=== PATIENT | female | born 1930 | race Caucasian/White ===

== ENCOUNTER 2016-04-23 20:23 | Emergency (ER) | payer OTHER ==
--- NOTE | 2016-04-23 20:23 | EDPHY ---
H & P Time Seen by Provider: 04/23/16 20:23 HPI/ROS: CHIEF COMPLAINT: Dizziness HISTORY OF PRESENT ILLNESS: Patient complained of dizziness today but has difficulty telling me the exact details. She mainly tells me that she wanted to go way. She describes it is a sensation of movement and being off balance which only lasts seconds and sounds like it is triggered by movement or standing. No nausea. No headache. No neck pain and no syncope. Asymptomatic in the emergency department. REVIEW OF SYSTEMS: Eye: no change in vision ENT: no sore throat Cardiac: no chest pain or syncope Pulmonary: no cough or SOB Abdomen: no vomiting, diarrhea, abdominal pain Musculoskeletal: No back or neck pain. She has had some intermittent left arm pain which also lasts seconds over the past month. None in the emergency department. Skin: no rash Neuro: no headache Constitutional: no fever : no urinary symptoms A comprehensive 10 point review of systems is otherwise negative aside from elements mentioned in the history of present illness. PAST MEDICAL HISTORY: Includes hypertension and esophageal tremor, esophageal stricture, macular degeneration, bilateral hip replacements. Social history: Ex smoker General Appearance: Alert and conversant, cooperative. Eyes: No scleral icterus. ENT, Mouth: Normal mucous membranes. Normal tympanic membranes. Respiratory: Normal respiratory effort, breath sounds equal, lungs are clear to auscultation. Cardiovascular: Regular rate and rhythm. Gastrointestinal: Abdomen is soft and non tender. Neurological: Alert and follows commands, oriented x2 which per EMS is her baseline. Normal [id number] bilaterally and normal epin-sd-ervy bilaterally. Extraocular motions intact. Normally conversant. Face symmetric, normal movement and sensation in all extremities. Skin: Warm and dry, no rashes. Musculoskeletal: No peripheral edema and no joint swelling. Normal range of motion of the left arm. No bony tenderness and no joint effusions. Compartments are soft. No skin changes. Psychiatric: Not agitated. Emergency Department course/MDM: EKG, head CT, labs to include troponin. Symptoms most likely benign positional vertigo. Only last for seconds, worse with position, normal neurologic exam here. Unclear about the significance of the left arm symptoms, but does not appear to be unstable angina. [id number]: Discussed with Sina, plan for DC with outpatient followup. Up with walker in ED hallway now. Requests no meclizine or benzodiazepines for the patient. Constitutional: Initial Vital Signs Temperature (C) 36.5 C 04/23/16 20:23 Heart Rate 66 04/23/16 20:23 Respiratory Rate 16 04/23/16 20:23 Blood Pressure 195/83 H 04/23/16 20:23 O2 Sat (%) 94 04/23/16 20:23 O2 Delivery Mode Room Air Allergies/Adverse Reactions: No Known Allergies Allergy (Verified 07/27/15 12:12) Home Medications: Medication Instructions Recorded ALPRAZolam [Xanax 0.5 MG (RX)] 0.5 mg PO HS PRN 08/21/12 Lexapro 10 MG (RX) 10 mg PO DAILY 02/26/13 Propranolol HCl [Inderal 20mg (*)] 60 mg PO BID 02/26/13 ZyrTEC 10 mg (RX) 10 mg PO DAILY PRN 02/26/13 Lisinopril 04/23/16 Medical Decision Making - Diagnostics EKG Interpretation: 12-lead EKG interpreted by me; official reading is in trace master. My interpretation is sinus rhythm with left axis but no acute ischemic changes. Imaging: CT head negative, reviewed with Dr. walton at 9:41 p.m. Differential Diagnosis: Differential diagnosis considered for dizziness including but not limited to peripheral and central causes of vertigo, orthostatic causes including dehydration, and blood loss. - Data Points Laboratory Results: Laboratory Results 04/23/16 20:36 04/23/16 20:36 04/23/16 20:36 WBC 8.33 10^3/uL (3.80-9.50) RBC 5.03 10^6/uL (4.18-5.33) Hgb 15.6 g/dL (12.6-16.3) Hct 47.1 H % (38.0-47.0) MCV 93.6 fL (81.5-99.8) MCH 31.0 pg (27.9-34.1) MCHC 33.1 g/dL (32.4-36.7) RDW 14.5 % (11.5-15.2) Plt Count 241 10^3/uL (150-400) MPV 9.7 fL (8.7-11.7) Neut % (Auto) 45.3 % (39.3-74.2) Lymph % (Auto) 41.5 % (15.0-45.0) [place] % (Auto) 10.6 % (4.5-13.0) Eos % (Auto) 1.9 % (0.6-7.6) Baso % (Auto) 0.5 % (0.3-1.7) Nucleat RBC Rel Count 0.0 % (0.0-0.2) Absolute Neuts (auto) 3.77 10^3/uL (1.70-6.50) Absolute Lymphs (auto) 3.46 H 10^3/uL (1.00-3.00) Absolute Monos (auto) 0.88 H 10^3/uL (0.30-0.80) Absolute Eos (auto) 0.16 10^3/uL (0.03-0.40) Absolute Basos (auto) 0.04 10^3/uL (0.02-0.10) Absolute Nucleated RBC 0.00 10^3/uL (0-0.01) Immature Gran % 0.2 % (0.0-1.1) Immature Gran # 0.02 10^3/uL (0.00-0.10) Sodium 138 mEq/L (134-144) Potassium 4.7 mEq/L (3.5-5.2) Chloride 102 mEq/L (97-110) Carbon Dioxide 28 mEq/l (22-31) Anion Gap 8 mEq/L (8-16) BUN 16 mg/dL (7-23) Creatinine 0.8 mg/dL (0.6-1.0) Estimated GFR > 60 Glucose 86 mg/dL (70-100) Calcium 9.8 mg/dL (8.5-10.4) Troponin I < 0.012 ng/mL (0-0.034) Medications Given: Discontinued Medications Meclizine HCl (Meclizine Hcl) 12.5 mg PO EDNOW ONE Stop: 04/23/16 20:51 Last Admin: 04/23/16 21:28 Dose: 12.5 mg Departure - Departure Disposition: Home, Routine, Self-Care Clinical Impression: Dizziness Condition: Good Instructions: Benign Paroxysmal Positional Vertigo (ED), Dizziness (ED) Referrals: Yusra Andino MD [Primary Care Provider] - As per Instructions
[2016-04-23 20:44] VITALS: RESP 16; TEMP 97.7
[2016-04-23 20:46] LABS: % IMMATURE GRANULYOCYTES 0.2 % (0.0-1.1); ABSOLUTE IMMATURE GRANULOCYTES 0.02 10^3/uL (0.00-0.10); ADD DIFF? NO; ADD MORPH? NO; ADD SCAN? NO; ATYPICAL LYMPHOCYTE FLAG 10 (0-99); FRAGMENT RBC FLAG 0 (0-99); HEMATOCRIT 47.1 % (38.0-47.0); HEMOGLOBIN 15.6 g/dL (12.6-16.3); LEFT SHIFT FLG 0 (0-99); LIPEMIA HEMOLYSIS FLAG 80 (0-99); MEAN CELL HEMOGLOBIN CONCENTR. 33.1 g/dL (32.4-36.7); MEAN CELL VOLUME 93.6 fL (81.5-99.8); MEAN PLATELET VOLUME 9.7 fL (8.7-11.7); PLATELET CLUMPS FLAG 10 (0-99); PLATELET COUNT 241 10^3/uL (150-400); RED BLOOD CELL COUNT 5.03 10^6/uL (4.18-5.33); RED CELL DISTRIBUTION WIDTH 14.5 % (11.5-15.2)
--- NOTE | 2016-04-23 20:48 | CPEKG ---
Heart Rate: 59 RR Interval: 1017 P-R Interval: 152 QRSD Interval: 88 QT Interval: 476 QTC Interval: 472 P [place]: 66 QRS [place]: -41 T Wave [place]: 54 EKG Severity - OTHERWISE NORMAL ECG - EKG Impression: SINUS RHYTHM EKG Impression: LEFT AXIS DEVIATION Electronically Signed By: Nilton Jason 23-Apr-2016 20:52:41
[2016-04-23] MEDS ORDERED: MECLIZINE HCL 25 MG TAB PO ONE (20:50)
[2016-04-23 21:03] LABS: ANION GAP 8 mEq/L (8-16); CALCIUM 9.8 mg/dL (8.5-10.4); CARBON DIOXIDE 28 mEq/l (22-31); CHLORIDE 102 mEq/L (97-110); CREATININE 0.8 mg/dL (0.6-1.0); GLOMERULAR FILTRATION RATE > 60; GLUCOSE 86 mg/dL (70-100); POTASSIUM 4.7 mEq/L (3.5-5.2); SODIUM 138 mEq/L (134-144)
[2016-04-23 21:14] LABS: TROPONIN I < 0.012 ng/mL (0-0.034)
[2016-04-23 21:29] VITALS: O2SAT 92
--- NOTE | 2016-04-23 21:42 | CT ---
CT Scan of Head (Without Contrast) Clinical Indications: Dizziness. Intermittent left arm pain and a history of hypertension and esophag eal tumor. Comparison: July 25, 2015. Technique: Axial CT images were acquired from foramen magnum through vertex, without intravenous con trast. Soft tissue and bone windows were reviewed on the computer workstation. Images were reconstr ucted down to 1.25 mm images. Dose reduction techniques were utilized. Findings: There is moderate age-related supratentorial volume loss. There is moderate periventricula r white matter disease, symmetrically distributed bilaterally. No intracranial hemorrhage or mass. Si nuses are clear. No fracture. Impression: Atrophy and microvascular ischemic disease. Findings and recommendations discussed with Nino LONGORIA at 2140 hour, 04/23/2016. Final report concurs with initial preliminary interpretation.
[2016-04-23 22:44] VITALS: BP 157/88; PULSE 60
== END 2016-04-23 22:43 | disposition home or self-care (01) ==
LOC: EDUNIT#
DX: R42 Dizziness and giddiness (principal); I10 Essential (primary) hypertension; Z87.891 Personal history of nicotine dependence

== ENCOUNTER 2016-07-04 22:17 | Emergency (ER) | payer OTHER ==
[2016-07-04 22:42] VITALS: RESP 16
[2016-07-04] MEDS ORDERED: ONDANSETRON DISINTEGRATING 4 MG TAB PO ONE (22:55)
[2016-07-04] MEDS ORDERED: ACETAMINOPHEN 500 MG TAB PO ONE (22:55)
--- NOTE | 2016-07-05 00:19 | EDPHY ---
H & P Stated Complaint: sent by assisted living facility for HTN Time Seen by Provider: 07/04/16 22:42 HPI/ROS: Chief Complaint: Hypertension HPI: 85-year-old woman from assisted living with a past medical history of hypertension. Patient was feeling mildly lightheaded this evening. When staff checked her blood pressure it was over 200 systolic. Patient has a history of hypertension and has been taking her medications. No recent illness. No fevers or chills. Has not had a headache. No chest pain shortness of breath. No urinary symptoms. No nausea or vomiting. She has not been does syncopal. No palpitations. She was sent in for further evaluation. During my evaluation the patient is without complaint. States that earlier she felt a little on well but is now feeling significantly better. ROS: 10 point Review of Systems is negative except as noted in the HPI. PMH: Hypertension Social History: No smoking, no alcohol, no recreational drug use Family History: non-contributory Physical Exam: Gen: Awake, Alert, No Distress HEENT: Nose: no rhinorrhea Eyes: PERRLA, EOMI Mouth: Moist mucosa Neck: Supple, no JVD Chest: nontender, lungs clear to auscultation Heart: S1, S2 normal, no murmur Abd: Soft, non-tender, no guarding Back: no CVA tenderness, no midline tenderness Ext: no edema, non-tender Skin: no rash Neuro: CN II-XII intact, Sensation grossly intact, Strength 5/5 in bilateral upper and lower extremities - Personal History Current Tetanus/Diphtheria Vaccine: Unsure Current Tetanus Diphtheria and Acellular Pertussis (TDAP): Unsure Tetanus Vaccine Date: < 10 years - Medical/Surgical History Hx Asthma: No Hx Chronic Respiratory Disease: No Hx Diabetes: No Hx Cardiac Disease: Yes Hx Renal Disease: No Hx Cirrhosis: No Hx Alcoholism: No Hx HIV/AIDS: No Hx Splenectomy or Spleen Trauma: No Other PMH: medical- HTN, MACULAR DEGENERATION,chronic R hip pain. surgeries- ortho, "esophagus stretched" - Social History Smoking Status: Former smoker Constitutional: Initial Vital Signs Temperature (C) 36.5 C 07/04/16 22:38 Heart Rate 72 07/04/16 22:38 Respiratory Rate 16 07/04/16 22:38 Blood Pressure 175/114 H 07/04/16 22:38 O2 Sat (%) 94 07/04/16 22:38 O2 Delivery Mode Room Air Allergies/Adverse Reactions: No Known Allergies Allergy (Verified 07/04/16 22:33) Home Medications: Medication Instructions Recorded ALPRAZolam [Xanax 0.5 MG (RX)] 0.5 mg PO HS PRN 08/21/12 Lexapro 10 MG (RX) 10 mg PO DAILY 02/26/13 Propranolol HCl [Inderal 20mg (*)] 60 mg PO BID 02/26/13 ZyrTEC 10 mg (RX) 10 mg PO DAILY PRN 02/26/13 Lisinopril 04/23/16 Calcium 07/04/16 Cetirizine 07/04/16 Melatonin 07/04/16 Premarin 07/04/16 Sambucol Black Elderberry 07/04/16 traZODone 07/04/16 Medical Decision Making ED Course/Re-evaluation: Repeat blood pressure here is 175 systolic. Patient is without symptoms. She is ambulating without difficulty. She was initially complaining a little bit of nausea with this was resolved with ondansetron. She is up and ambulating. Her son is here at the bedside and willing to take her home to her assisted living. No evidence of acute cardiac or infectious process at this time. I have instructed that she should be followed up with primary care physician in 2- 3 days. This could represent an occult infection such as urinary tract infection. Patient has been unable to give a urine here. I have encouraged them to follow up with her for further evaluation of a possible UTI or other cause. Otherwise there is no evidence of acute hypertensive emergency. She will return for any concerns. - Data Points Medications Given: Discontinued Medications Acetaminophen (Tylenol) 1,000 mg PO EDNOW ONE Stop: 07/04/16 22:56 Last Admin: 07/05/16 00:15 Dose: 1,000 mg Ondansetron HCl (Zofran Odt) 4 mg PO EDNOW ONE Stop: 07/04/16 22:56 Last Admin: 07/04/16 23:10 Dose: 4 mg Departure - Departure Disposition: Home, Routine, Self-Care Clinical Impression: Hypertension Condition: Good Instructions: Hypertension (ED) Additional Instructions: Follow up with your primary care doctor tomorrow for blood pressure recheck. Return emergency department for severe headache, chest pain, shortness of breath , or any other concerns. Referrals: Yusra Andino MD [Primary Care Provider] - As per Instructions
[2016-07-05 00:41] VITALS: BP 165/96; PULSE 73; TEMP 97.9; O2SAT 91
== END 2016-07-05 00:41 | disposition home or self-care (01) ==
LOC: EDUNIT#
DX: I10 Essential (primary) hypertension (principal); Z87.891 Personal history of nicotine dependence

== ENCOUNTER 2017-04-06 19:30 | Emergency (ER) | payer OTHER ==
--- NOTE | 2017-04-06 19:40 | EDPHY ---
H & P Time Seen by Provider: 04/06/17 19:33 HPI/ROS: CHIEF COMPLAINT: Right femur fracture HISTORY OF PRESENT ILLNESS: The patient is an 86-year-old female brought in by EMS for reportedly having a right femur fracture. She rolled out of bed last night and landed on her right hip. She has bilateral hip prosthesis. She was complaining of some leg pain today and the [facility] ordered a mobile x-ray. This was done and she was diagnosed with a femur fracture. There is no bruising however and currently the patient is not complaining of any pain. She can move it in all directions and her family is here stating that she is able walk with her walker and bear weight same as at baseline. She denies other injuries. REVIEW OF SYSTEMS: Constitutional: denies: chills, fever, recent illness, recent injury EENTM: denies: blurred vision, double vision, nose congestion Respiratory: denies: cough, shortness of breath Cardiac: denies: chest pain, irregular heart rate, lightheadedness, palpitations Gastrointestinal/Abdominal: denies: abdominal pain, diarrhea, nausea, vomiting, blood streaked stools Genitourinary: denies: dysuria, frequency, hematuria, pain Musculoskeletal: See HPI Skin: denies: lesions, rash, jaundice, bruising Neurological: denies: headache, numbness, paresthesia, tingling, dizziness, weakness Hematologic/Lymphatic: denies: blood clots, easy bleeding, easy bruising Immunologic/allergic: denies: HIV/AIDS, transplant EXAM: GENERAL: Well-appearing, well-nourished and in no acute distress. HEAD: Atraumatic, normocephalic. EYES: Pupils equal round and reactive to light, extraocular movements intact, sclera anicteric, conjunctiva are normal. ENT: TMs normal, nares patent, oropharynx clear without exudates. Moist mucous membranes. NECK: Normal range of motion, supple without lymphadenopathy or JVD. LUNGS: Breath sounds clear to auscultation bilaterally and equal. No wheezes rales or rhonchi. HEART: Regular rate and rhythm without murmurs, rubs or gallops. ABDOMEN: Soft, nontender, normoactive bowel sounds. No guarding, no rebound. No masses appreciated. BACK: No CVA tenderness, no spinal tenderness, step-offs or deformities EXTREMITIES: Normal range of motion, no pitting or edema. No clubbing or cyanosis. No sign of deformity or bruising, no tenderness NEUROLOGICAL: Cranial nerves II through XII grossly intact. Normal speech, ambulates with a walker unchanged from baseline. 5/5 strength, normal movement in all extremities, normal sensation PSYCH: Normal mood, normal affect. SKIN: Warm, dry, normal turgor, no visible rashes or lesions. Source: Patient, Family, EMS, senior living records Exam Limitations: Clinical condition - Personal History Tetanus Vaccine Date: < 10 years - Medical/Surgical History Hx Asthma: No Hx Chronic Respiratory Disease: No Hx Diabetes: No Hx Cardiac Disease: Yes Hx Renal Disease: No Hx Cirrhosis: No Hx Alcoholism: No Hx HIV/AIDS: No Hx Splenectomy or Spleen Trauma: No Other PMH: medical- HTN, MACULAR DEGENERATION,chronic R hip pain. surgeries- ortho, "esophagus stretched" - Social History Smoking Status: Former smoker Alcohol Use: None Drug Use: None Constitutional: Initial Vital Signs Temperature (C) 36.3 C 04/06/17 19:40 Heart Rate 60 04/06/17 19:40 Respiratory Rate 16 04/06/17 19:40 Blood Pressure 163/93 H 04/06/17 19:40 O2 Sat (%) 92 04/06/17 19:40 O2 Delivery Mode Room Air Allergies/Adverse Reactions: No Known Allergies Allergy (Verified 07/04/16 22:33) Home Medications: Medication Instructions Recorded ALPRAZolam [Xanax 0.5 MG (RX)] 0.5 mg PO HS PRN 08/21/12 Lexapro 10 MG (RX) 10 mg PO DAILY 02/26/13 Propranolol HCl [Inderal 20mg (*)] 60 mg PO BID 02/26/13 ZyrTEC 10 mg (RX) 10 mg PO DAILY PRN 02/26/13 Lisinopril 04/23/16 Calcium 07/04/16 Cetirizine 07/04/16 Melatonin 07/04/16 Premarin 07/04/16 Sambucol Black Elderberry 07/04/16 traZODone 07/04/16 Medical Decision Making - Diagnostics Imaging Results: Imaging Impressions Femur X-Ray 04/06/17 19:38 Impression: 1. No evidence of acute fracture right femur as detailed above. Imaging: Discussed imaging studies w/ order caller Radiologist ED Course/Re-evaluation: 8:05 p.m. I have reviewed the patient's x-rays. I do not see any acute fracture here. Her previous femoral neck fracture is unchanged from several years ago and has pins in place. I will call the assisted to discuss exactly what they saw on their x-ray. 8:15 p.m. I confirmed with Dr. Campo that there is no acute fracture. I spoke with the assisted and they gave me the number of the mobile unit who came to perform x-rays earlier. I tried to call that number and left a message. I re-evaluated the patient. She denies having any pain in the other leg or upper extremities or lower right leg. She states that she still thinks nothing is wrong and told them several times she did not break anything however they brought her here any ways. Her family is somewhat confused as am I. We will continue trying to contact the mobile unit who performed her x-rays earlier. She is acting normally and able to ambulate at baseline however. Clinically she does not appear to have any injuries. 9:45 p.m. we have tried multiple times to contact [facility] and their radiologist's. This includes them sending emails to the radiologist's. Who have not returned our pages or voice mails. At this point the patient continues to state that she is fine and has no injuries. She is able to ambulate here in the emergency department. I will discharge her at this time in the care of her family. Differential Diagnosis: Partial list of the Differential diagnosis considered include but were not limited to; leg pain, fall, fracture, contusion and although unlikely based on the history and physical exam, I also considered head injury, neck injury, back injury. I discussed these differential diagnoses and the plan with the patient and her family as well as the usual and expected course. The patient understands that the diagnosis is provisional and that in medicine we are not always correct and that further workup is often warranted. Usual and customary warnings were given. All of the patient's questions were answered. The patient was instructed to return to the emergency department should the symptoms at all worsen or return, otherwise to followup with the physician as we discussed. Departure - Departure Disposition: Home, Routine, Self-Care Clinical Impression: Fall Qualifiers: Encounter type: initial encounter Qualified Code(s): W19.XXXA - Unspecified fall, initial encounter Condition: Fair Instructions: Fall Prevention for Older Adults (ED) Referrals: Patient,NotPresent [Unknown] - As per Instructions
[2017-04-06 19:56] VITALS: TEMP 97.3
[2017-04-06 20:46] VITALS: BP 165/86; PULSE 87; RESP 18; O2SAT 94
== END 2017-04-06 20:46 | disposition home or self-care (01) ==
LOC: EDUNIT#
DX: M79.604 Pain in right leg (principal); I10 Essential (primary) hypertension; Z87.891 Personal history of nicotine dependence

== ENCOUNTER 2017-04-15 15:33 | Emergency (ER) | payer OTHER ==
[2017-04-15 15:47] VITALS: TEMP 98.1
[2017-04-15] MEDS ORDERED: ALPRAZolam 0.25 MG TAB PO ONE (17:21)
[2017-04-15] MEDS ORDERED: ACETAMINOPHEN 325 MG TAB PO ONE (17:21)
--- NOTE | 2017-04-15 19:33 | EDPHY ---
H & P Stated Complaint: Sent for eval of continued R upper leg pain;seen here last wk for same c/o Time Seen by Provider: 04/15/17 16:37 HPI/ROS: CHIEF COMPLAINT: Right hip pain HISTORY OF PRESENT ILLNESS: This is an 86-year-old female who was evaluated in this emergency department on 04/06/2017 out of concern for right femur fracture. That day she had fallen out of bed and complained of leg pain. A mobile x-ray was performed at her living facility and was reportedly positive for frame femur fracture. When evaluated in the emergency department a repeat x-ray did not show fracture. She has bilateral hip prostheses. She presents tonight because the facility is concerned that she is not walking as well as she had done so previously. She uses a walker. She is complaining of some right hip pain with weight-bearing but is not particularly concerned about it. She is not taking pain medication on a regular basis. Tylenol is available to her. REVIEW OF SYSTEMS: A ten point review of systems was performed and is negative with the exception of the items mentioned in the HPI. Past medical history: 1. Hypertension 2. Macular degeneration 3. Esophageal dilatation 4. Chronic right hip pain Past surgical history: Bilateral femoral fractures status post ORIF Social history: She is . Her son-in-law accompanies her today. I believe that she lives independently in an apartment in a facility that has various levels of care available. General Appearance: Alert. Vital signs reviewed. Eyes: Pupils equal and round, no conjunctival injection, no discharge. Anicteric. Neck: No lymphadenopathy, supple. Respiratory: Lungs are clear to auscultation; no wheezes, rales, or rhonchi. Cardiovascular: Regular rate and rhythm; no murmur, rub, or gallop. Gastrointestinal: Abdomen is soft and nontender, no masses or organomegaly, bowel sounds normal. Skin: Warm and dry, no rashes on exposed skin, normal color. Back: Nontender to palpation over the thoracolumbar spine. No CVAT. Extremities: No lower extremity edema, no calf tenderness or swelling. Full pain passive range of motion of her right hip. Mildly tender to palpation over the right ilium and upper femur. No palpable bony deformity. No foreshortening or rotational deformity. Neurological: Alert and oriented. Moving all four extremities easily and equally. Psychiatric: Normal affect. - Personal History Current Tetanus Diphtheria and Acellular Pertussis (TDAP): Yes Tetanus Vaccine Date: < 10 years - Medical/Surgical History Hx Asthma: No Hx Chronic Respiratory Disease: No Hx Diabetes: No Hx Cardiac Disease: Yes Hx Renal Disease: No Hx Cirrhosis: No Hx Alcoholism: No Hx HIV/AIDS: No Hx Splenectomy or Spleen Trauma: No Other PMH: medical- HTN, MACULAR DEGENERATION,chronic R hip pain. surgeries- ortho, "esophagus stretched" - Social History Smoking Status: Former smoker Constitutional: Initial Vital Signs Temperature (C) 36.7 C 04/15/17 15:43 Heart Rate 64 04/15/17 15:43 Respiratory Rate 18 04/15/17 15:43 Blood Pressure 155/101 H 04/15/17 15:43 O2 Sat (%) 92 04/15/17 15:43 O2 Delivery Mode Room Air Allergies/Adverse Reactions: No Known Allergies Allergy (Verified 04/15/17 15:43) Home Medications: Medication Instructions Recorded ALPRAZolam [Xanax 0.5 MG (RX)] 0.5 mg PO HS PRN 08/21/12 Lexapro 10 MG (RX) 10 mg PO DAILY 02/26/13 Propranolol HCl [Inderal 20mg (*)] 60 mg PO BID 02/26/13 ZyrTEC 10 mg (RX) 10 mg PO DAILY PRN 02/26/13 Lisinopril 04/23/16 Calcium 07/04/16 Cetirizine 07/04/16 Melatonin 07/04/16 Premarin 07/04/16 Sambucol Black Elderberry 07/04/16 traZODone 07/04/16 Medical Decision Making ED Course/Re-evaluation: CT scan of the pelvis was obtained to assess for occult fracture. The results were relayed to me by the radiologist on duty. There is no evidence of pelvis or right femur fracture. Bilateral femur fixations noted. Patient and son-in- law were reassured by these studies. I have advised her to take the Tylenol that is available to her and see if this helps with her pain. She is not particularly concerned about the pain and states that she can deal with it. Apparently caregivers have been concerned about it. She feels that she can walk using her walker. She will follow up with her primary care physician. I do not suspect fracture or dislocation given the evaluation that has been done to date. There is nothing in the history of physical examination that makes me concerned about infection. She has uterine fibroids that I do not think her contributing to her hip pain. I do not suspect malignancy at this point. This is likely acute on chronic pain. PT/OT and pain medication will hopefully be sufficient. - Data Points Medications Given: Discontinued Medications Acetaminophen (Tylenol) 650 mg PO EDNOW ONE Stop: 04/15/17 17:22 Last Admin: 04/15/17 17:36 Dose: 650 mg Alprazolam (Xanax) 0.25 mg PO EDNOW ONE Stop: 04/15/17 17:22 Last Admin: 04/15/17 17:37 Dose: 0.25 mg Departure - Departure Disposition: Home, Routine, Self-Care Clinical Impression: Right hip pain Condition: Good Instructions: Hip Pain (ED) Additional Instructions: A CT scan was performed looking at your pelvis and her right hip. There are no broken bones. I recommend that you try taking Tylenol on a regular basis to see if that helps with your pain. Contact Dr. Chung about further measures that can be taken to help with your hip pain. Referrals: Yusra Andino MD [Primary Care Provider] - As per Instructions
[2017-04-15 19:47] VITALS: BP 154/76; PULSE 60; RESP 18; O2SAT 94
== END 2017-04-15 19:47 | disposition home or self-care (01) ==
DX: M25.551 Pain in right hip (principal); I10 Essential (primary) hypertension; Z87.891 Personal history of nicotine dependence